=== PATIENT | male | born 1995 | race Caucasian/White ===

== ENCOUNTER 2019-11-04 11:40 | Emergency (ER) | payer OTHER ==
--- NOTE | 2019-11-04 11:54 | TELE ---
HPI Do you have fever,cough or shortness of breath?: No - General History Source: Patient Past History - Medical History Allergies/Adverse Reactions: Allergies Allergy/AdvReac Type Severity Reaction Status Date / Time No Known Allergies Allergy Unverified 01/04/12 17:51 Home Medications: Ambulatory Orders Microvent PO BID 01/04/12 Nexproxn 20 mg PO DAILY 01/04/12 Sumatriptan mg NS PRN 01/04/12 - Psycho-Social/Smoking History Smoking Status: No Smoking History: Never smoked Number of Cigarettes Smoked Daily: 0 Review of Systems - Review of Systems Constitutional: No: Chills, Fever Respiratory: No: Cough, Shortness of Breath Cardiac (ROS): No: Chest Pain *Physical Exam - Physical Exam HEENT: positive: Normal Voice - Medical Decision Making 11/04/19 11:52 24 yo M, no sig hx, req covid tsting. No sxs. Will proceed to [facility]. Instructions given over the phone as pt states he is unable to see texts on Backline and video chat link not available Discharge Diagnosis at time of Disposition: Encounter by telehealth for suspected COVID-19 - Referrals - Patient Instructions - Discharge Disposition: HOME
== END 2019-11-04 11:58 | disposition home or self-care (01) ==
LOC: JVIRT 11:40
DX: Z11.59 Encounter for screening for other viral diseases (principal)
CPT/HCPCS: Q3014-GT; U0003

== ENCOUNTER 2021-04-02 07:02 | Day surgery (SDC) | payer BC ==
[2021-03-30 16:13] VITALS: BMI 23.7
[2021-04-02] MEDS ORDERED: PROPOFOL 20 ML ONE ×3 (08:09)
[2021-04-02] MEDS ORDERED: LIDOCAINE HCL/PF 2% SDV 5ML VIAL ONE (08:09)
[2021-04-02 09:04] VITALS: PULSE 68; TEMP 98.4
[2021-04-02 09:36] VITALS: BP 140/87
== END 2021-04-02 09:46 | disposition home or self-care (01) ==
LOC: FASU-ENDO 07:02
PROVIDERS: ATTEND Internal Medicine Gastroenterology
PROC: 0DB68ZX Excision of Stomach, Via Natural or Artificial Opening Endoscopic, Diagnostic (ICD-10-PCS; 2021-04-02)
PROC: 0DB38ZX Excision of Lower Esophagus, Via Natural or Artificial Opening Endoscopic, Diagnostic (ICD-10-PCS; 2021-04-02)
PROC: 0DB98ZX Excision of Duodenum, Via Natural or Artificial Opening Endoscopic, Diagnostic (ICD-10-PCS; principal; 2021-04-02 08:40)
DX: K29.50 Unspecified chronic gastritis without bleeding (principal); R10.13 Epigastric pain; R11.0 Nausea; R63.4 Abnormal weight loss
CPT/HCPCS: 88305-TC; 88342-TC